=== PATIENT | female | born 1960 | race Caucasian/White ===

== ENCOUNTER → 2016-11-22 | Outpatient (CLI) | payer OTHER ==
--- NOTE | 2016-11-22 20:10 | Diagnostic Imaging Report ---
EXAMINATION: Left breast ultrasound. INDICATION: Left breast mass. FINDINGS: The palpable lump is located at 10:00 zone, 2 cm from the nipple, and is essentially a simple cyst measuring 4.5 x 2.0 x 3.0 cm. No solid mass is seen in the surrounding area within the upper outer quadrant. IMPRESSION: The palpable lump is a simple cyst. No solid mass. Annual screening mammogram is recommended. ACR BI-RADS Category 2: Benign findings. Result letter will be mailed to the patient. Note: At least 10% of breast cancer is not imaged by mammography. Dictated by: Dictated on workstation # [id number]
--- NOTE | 2016-11-22 20:13 | Diagnostic Imaging Report ---
EXAMINATION: Left breast digital diagnostic mammogram with CAD. The current study was also evaluated with a Computer Aided Detection (CAD) system. INDICATION: Lump. FINDINGS: There is heterogeneously dense parenchyma in the left breast. Compared to prior exams no adverse development is seen. The area marked for a lump demonstrates no definitive underlying lesion. However, the area is dense and could obscure underlying abnormality. IMPRESSION: No underlying abnormality is confirmed at the area of the lump. Dense background tissue is seen. Ultrasound correlation pending. ACR BI-RADS Category 0: Incomplete. (Needs additional imaging evaluation). Result letter will be mailed to the patient. Note: At least 10% of breast cancer is not imaged by mammography. Dictated by: Dictated on workstation # [id number]
== END ==
LOC: RAD 07:40
PROVIDERS: ATTEND Nurse Practitioner Family
DX: N60.02 Solitary cyst of left breast (principal)
CPT/HCPCS: 76642

== ENCOUNTER → 2018-01-29 | Outpatient (CLI) | payer OTHER ==
--- NOTE | 2018-01-29 11:56 | Diagnostic Imaging Report ---
INDICATION: Routine screening. COMPARISON: Comparison is made with prior mammograms from 03/28/2016 and 02/21/2015. TECHNIQUE: 2D and 3D bilateral screening mammography was performed with computer-aided detection (CAD) system. FINDINGS: Both breasts remain heterogeneously dense, limiting the sensitivity of mammography. The parenchymal pattern is stable. Previously noted large cyst in the central left breast has decreased in size since study from 2017. No new mass or malignant appearing microcalcifications are seen. There are benign calcifications present. The axillae are unremarkable. IMPRESSION: No mammographic features suspicious for malignancy are identified. ACR BI-RADS Category 2: Benign findings. Result letter will be mailed to the patient. Note: At least 10% of breast cancer is not imaged by mammography. Dictated by: Dictated on workstation # [id number]
== END ==
LOC: RAD 10:03
PROVIDERS: ATTEND Family Medicine
DX: Z12.31 Encounter for screening mammogram for malignant neoplasm of breast (principal); E04.1 Nontoxic single thyroid nodule
CPT/HCPCS: 77067

== ENCOUNTER → 2018-05-21 | Outpatient (CLI) | payer OTHER ==
--- NOTE | 2018-05-21 09:43 | Diagnostic Imaging Report ---
CLINICAL INDICATION: Patient with thyroid cyst. Followup exam. COMPARISONS: Thyroid ultrasound dated 05/08/2016. FINDINGS: THYROID NODULES: There is a stable 4 mm x 2 mm x 3 mm heterogeneous iso-/hypoechoic nodule involving the inferior pole of the right thyroid gland. There is a stable 6 mm x 3 mm x 5 mm hypoechoic nodule involving the medial midportion of left thyroid gland. THYROID GLAND: Besides the thyroid nodules, the thyroid gland has normal size, shape and echogenicity. The right lobe measures 5.0 cm x 2.0 cm x 1.4 cm and the left lobe measures 5.0 cm x 1.8 cm x 1.1 cm in their three dimensions. ISTHMUS: The isthmus is unremarkable and measures 4 mm in thickness. IMPRESSION: Stable bilateral thyroid gland nodules measuring 4 mm on the right and 5 mm on the left. Otherwise, remainder of the thyroid gland is unremarkable. Dictated by: Dictated on workstation # [id number]
== END ==
LOC: RAD 08:48
PROVIDERS: ATTEND Family Medicine
DX: E04.2 Nontoxic multinodular goiter (principal)
CPT/HCPCS: 76536

== ENCOUNTER → 2019-07-23 | Outpatient (CLI) | payer OTHER ==
--- NOTE | 2019-07-23 10:25 | Diagnostic Imaging Report ---
INDICATION: Routine screening. Comparison is made with prior mammogram 01/29/2018 and 03/28/2016. 2-D and 3-D bilateral screening mammography was performed with CAD. Both breasts remain heterogeneously dense, limiting the sensitivity of mammography. Benign calcifications are present. Previously noted circumscribed density in the left breast has decreased in size. No new mass or malignant-appearing microcalcifications are seen. Axillae are unremarkable. IMPRESSION: BI-RADS Category 2 No mammographic features suspicious for malignancy are identified. ACR BI-RADS Category 2: Benign findings. Result letter will be mailed to the patient. Note: At least 10% of breast cancer is not imaged by mammography. Dictated by: Dictated on workstation # [id number]
== END ==
LOC: RAD 07:25
PROVIDERS: ATTEND Family Medicine
DX: Z12.31 Encounter for screening mammogram for malignant neoplasm of breast (principal)
CPT/HCPCS: 77067

== ENCOUNTER → 2020-08-10 | Outpatient (CLI) | payer OTHER ==
--- NOTE | 2020-08-10 08:35 | Diagnostic Imaging Report ---
INDICATION: Routine screening. Comparison is made with prior mammogram 07/23/2019 and 01/29/2018. 2-D and 3-D bilateral screening mammography was performed with CAD. Both breast are heterogeneously dense, limiting the sensitivity of mammography. The parenchymal pattern is stable. No mass or malignant appearing microcalcifications are seen. Axillae are unremarkable. IMPRESSION: BI-RADS Category 1 No mammographic features suspicious for malignancy are identified. ACR BI-RADS Category 1: Negative. Result letter will be mailed to the patient. Note: At least 10% of breast cancer is not imaged by mammography. Dictated by: Dictated on workstation # [id number]
--- NOTE | 2020-08-10 09:57 | Diagnostic Imaging Report ---
PROCEDURE: US Thyroid. TECHNIQUE: Multiple real-time grayscale images were obtained of the thyroid in various projections. INDICATION: Thyroid nodules. COMPARISON: 05/21/2018, 05/08/2016, and 11/17/2013 FINDINGS: The right lobe of thyroid gland measures 5.0 x 1.7 x 1.2 cm. Tiny 0.3 cm cystic nodule is identified within the inferior pole of the right thyroid lobe, not significantly changed since the prior examination. No new right thyroid nodules. The left lobe of thyroid gland measures 3.6 x 1.0 x 1.5 cm. An ovoid 0.6 x 0.5 x 0.5 cm hypoechoic spongiform nodule within the anterior aspect of the left mid thyroid lobe is again identified, not significantly changed since the prior examinations. No new left thyroid nodule. The isthmus is unremarkable. IMPRESSION: Bilateral subcentimeter thyroid nodules not significantly changed for multiple years. No new thyroid nodule. Dictated by: Dictated on workstation # [id number]
== END ==
LOC: RAD 08:00
PROVIDERS: ATTEND Family Medicine
DX: Z12.31 Encounter for screening mammogram for malignant neoplasm of breast (principal); E04.2 Nontoxic multinodular goiter
CPT/HCPCS: 76536; 77063; 77067

== ENCOUNTER 2021-04-18 05:51 | Outpatient (CLI) | payer OTHER ==
[~2021-04-18] VITALS: Ht 157.5 cm; Wt 70.3 kg
== END 2021-04-23 11:58 | disposition home or self-care (01) ==
LOC: PREOP 05:51
PROVIDERS: ATTEND Internal Medicine
DX: Z01.818 Encounter for other preprocedural examination (principal)

== ENCOUNTER 2021-04-27 06:53 | Day surgery (SDC) | payer OTHER ==
--- NOTE | 2021-04-17 15:29 | HISTORY AND PHYSICAL ---
DATE OF SERVICE: COLONOSCOPY HISTORY AND PHYSICAL HISTORY OF PRESENT ILLNESS: The patient is a 60-year-old white female referred by Dr. Bernstein for screening colonoscopy. She had one other colonoscopy a little over 10 years ago. She is deemed to be of average risk as she is not aware of any family history for colon cancer or any other types of cancer. She does report reflux is well controlled on omeprazole with no dysphagia. She denies abdominal pain, change in bowel habits, change in weight, melena or bright red blood per rectum. She does have intermittent lancinating or rectal pain that lasts for less than a minute typically just several times per year that goes back a number of years and has not been getting worse. PAST MEDICAL HISTORY: Significant for benign thyroid nodule, gastroesophageal reflux disease as noted above, hypertension, hyperlipidemia with no known history for vascular disease. MEDICATIONS ON ADMISSION: Include bisoprolol-HCTZ 2.5/6.25 mg daily, atorvastatin 20 mg daily, omeprazole 20 mg daily, calcium with D 500 mg daily. Vitamin D 2000 units daily. FAMILY HISTORY: Father living at the age of 85 with dementia, presumably Alzheimer's. Mother of motor vehicle accident at the age of 50. No reported family history for cancer. PAST SURGICAL HISTORY: Cholecystectomy in 2002 and a past STEFFI and BSO for benign reasons as I recall possibly at the same time as her cholecystectomy. 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 She has no past smoking history and rare social alcohol intake. REVIEW OF SYSTEMS: CONSTITUTIONAL: No night sweats, chills, fever, change in weight. PULMONARY: No cough, chest pain or shortness of breath. GASTROINTESTINAL: As noted in the HPI. CARDIOVASCULAR: No orthopnea, PND or pedal edema. PHYSICAL EXAMINATION: GENERAL: Reveals a well-appearing white female in no acute distress. VITAL SIGNS: Weight 155 pounds, blood pressure 130/90. HEENT: Unremarkable. Sclerae nonicteric. CHEST: Clear to auscultation. CARDIOVASCULAR: Reveals a regular rate and rhythm without murmur, S3 or S4. ABDOMEN: Soft, supple without mass, organomegaly or tenderness. EXTREMITIES: Reveal no cyanosis, clubbing or edema. ASSESSMENT AND PLAN: The patient is set up for screening colonoscopy. Prep instructions with the Suprep kit were given and questions answered. I thank you for the referral of this pleasant lady. Job ID: [id number] DocumentID: [id number] Dictated Date: 04/05/2021 17:48:26 Chief Design Branch Date: 04/05/2021 18:11:23 Dictated By: BETTYE CHEUNG MD MTDD
[~2021-04-27] VITALS: Ht 157.5 cm; Wt 70.3 kg
[2021-04-27] MEDS ORDERED: LACTATED RINGERS 1,000 ML IV ONE (07:18)
[2021-04-27] MEDS ORDERED: LACTATED RINGERS 1,000 ML IV STA (07:36)
[2021-04-27] MEDS ORDERED: PROPOFOL INJECTION 50 ML IV ONE (07:44)
[2021-04-27] MEDS ORDERED: LIDOCAINE JELLY 2% 6 ML SYRINGE MM PRN (07:45)
[2021-04-27 07:50] VITALS: BP 147/81
--- NOTE | 2021-04-27 07:51 | Pre-Op Note & Conscious Sedat ---
Pre-Operative Progress Note H&P Reviewed The H&P was reviewed, patient examined and no changes noted. Date H&P Reviewed: Apr 27, 2021 Time H&P Reviewed: 07:45 Conscious Sedation Pre-Proced ASA Score 2 For ASA 3 and 4: Consider anesthesia and medical clearance. Also, for patients with a history of failed moderate sedation consider anesthesia. Airway Lungs Heart ASA score ASA 1: a normal healthy patient ASA 2: a patient with a mild systemic disease (mid diabetes, controlled hypertension, obesity ASA 3: a patient with a severe systemic disease that limits activity (angina, COPD, prior Myocardial infarction) ASA 4: a patient with an incapacitating disease that is a constant threat to life (CHF, renal failure) ASA 5: a moribund patient not expected to survive 24 hrs. (ruptured aneurysm) ASA 6: a declared brain- patient whose organs are being harvested. For emergent operations, add the letter E after the classification Mallampati Classification Grade 2 Sedation Plan Analgesia, Amnesia, Plan communicated to team members, Discussed options with patient/fam, Discussed risks with patient/fam The patient is an appropriate candidate to undergo the planned procedure, sedation, and anesthesia. The patient immediately re-assessed prior to indication. BETTYE CHEUNG MD Apr 27, 2021 07:51
[2021-04-27] MEDS ORDERED: MIDAZOLAM 2 MG/2 ML (VERSED) VIAL ONE (08:03)
[2021-04-27 08:35] VITALS: BP 110/58
[2021-04-27 08:40] VITALS: BP 113/61
[2021-04-27 08:50] VITALS: BP 103/68
[2021-04-27 09:12] VITALS: BP 124/67
--- NOTE | 2021-04-27 12:50 | OPERATIVE REPORT ---
DATE OF SERVICE: COLONOSCOPY SUMMARY INDICATION FOR THE PROCEDURE: Screening colonoscopy. DESCRIPTION OF PROCEDURE: The patient was placed in the left lateral decubitus position. Prior to undergoing colonoscopy, a digital rectal evaluation was performed. Anal sphincter tone was normal and the perianal reflex was intact. No abnormalities were noted on digital inspection of the anal canal or distal rectal vault. The colonoscope was then inserted into the rectum and under direct visualization advanced to the cecum. The cecum was identified by identification of the ileocecal valve and cecal strap. Photographic documentation was obtained. A careful inspection was made as the colonoscope was withdrawn. The quality of the prep was good. FINDINGS: There was no evidence for internal or external hemorrhoids. Present in the proximal rectum was a 3 mm sessile hyperplastic-appearing polyp. It was biopsied and ablated. It was not submitted for histopathology due to a small size and characteristic features of hyperplastic polyps on visual inspection. The remainder of the rectum was unremarkable. Mild diverticular disease confined to the sigmoid colon was present without evidence for diverticulitis. No other sigmoid colonic abnormalities were appreciated. The descending colon, splenic flexure, transverse colon, hepatic flexure, ascending colon, and cecum were unremarkable. ASSESSMENT: One diminutive hyperplastic-appearing polyp was removed from the proximal rectum with no evidence for neoplasia on today's evaluation. The patient did have mild diverticular disease confined to the sigmoid colon without evidence for diverticulitis. As the patient is not aware of any family history for colon cancer, we would advocate consideration for repeat screening colonoscopy in 10 years. I thank you for the referral of this pleasant lady. Job ID: [id number] DocumentID: [id number] Dictated Date: 04/27/2021 08:33:53 Transformation Specialist Date: 04/27/2021 12:49:59 Dictated By: BETTYE CHEUNG MD
--- NOTE | 2021-04-27 12:52 | Anesthesia-General Post-Op ---
MAC Patient Condition Mental Status/LOC: Same as Preop Cardiovascular: Satisfactory Nausea/Vomiting: Absent Respiratory: Satisfactory Pain: Controlled Complications: Absent Post Op Complications Complications None Follow Up Care/Instructions Patient Instructions None needed. Anesthesiology Discharge Order Discharge Order Patient is doing well, no complaints, stable vital signs, no apparent adverse anesthesia problems. No complications reported per nursing. CORBY GALEANO CRNA Apr 27, 2021 12:52
== END 2021-04-27 09:21 | disposition home or self-care (01) ==
LOC: ENDO 06:53
PROVIDERS: ATTEND Internal Medicine
DX: Z12.11 Encounter for screening for malignant neoplasm of colon (principal); K62.1 Rectal polyp; K57.30 Diverticulosis of large intestine without perforation or abscess without bleeding; K21.9 Gastro-esophageal reflux disease without esophagitis; I10 Essential (primary) hypertension; E78.5 Hyperlipidemia, unspecified; Z79.899 Other long term (current) drug therapy

== ENCOUNTER → 2021-10-02 | Outpatient (CLI) | payer OTHER ==
--- NOTE | 2021-10-02 09:48 | Diagnostic Imaging Report ---
INDICATION: Postmenopausal screening COMPARISON: Baseline FINDINGS: AP Spine L1-L4: [BMD (g/cm2): 1.212] [T-Score: 0.1] [Z-Score: 1.2] [BMD Previous: na] [BMD % Change: na] LT Hip Neck: [BMD (g/cm2): 1.040] [T-Score: 0.0] [Z-Score: 1.2] LT Hip Total: [BMD (g/cm2):1.068] [T-Score:0.5] [Z-Score: 1.4] [BMD Previous: na] [BMD % Change: na] RT Hip Neck: [BMD (g/cm2):0.940] [T-Score:-0.7] [Z-Score:0.5] RT Hip Total: [BMD (g/cm2):1.046] [T-score:0.3] [Z-Score:1.2] [BMD Previous:na] [BMD % Change:na] *Indicates significant change from prior examination based on 95% confidence level. World Health Organization criteria for BMD interpretation classify patients as Normal (T-score at or above -1.0), Osteopenic (T-score between -1.0 and -2.5) or Osteoporotic (T-score at or below -2.5). LIMITATIONS AND MODIFICATION: None. FRACTURE RISK (FRAX SCORE): The ten year probability of (%): Major Osteoporotic Fracture: [na] Hip Fracture: [na] IMPRESSION: 1. Normal bone mineral density. 2. Baseline examination. 3. See below National Osteoporosis Foundation guidelines on when to potentially initiate pharmacologic therapy. Based on the National Osteoporosis Foundation Guidelines, pharmacologic treatment should be initiated in any of the following, unless clinical conditions suggest otherwise: * Any patient with prior fragility fracture of the hip or vertebrae. A spine fracture indicates 5X risk for subsequent spine fracture and 2X risk for subsequent hip fracture. * Osteoporosis (T-score <-2.5). * Postmenopausal women and men age 50 and older with low bone mass/osteopenia (T-score between -1.0 and -2.5) by DXA and 10-year major osteoporotic fracture greater than 20% or a 10-year probability of hip fracture greater than 3%. These fracture risks are supplied above in the FRAX score, if applicable. * Clinician judgement and/or patient preferences may indicate treatment for people with 10-year fracture probabilities above or below these levels. Dictated by: Dictated on workstation # [id number]
--- NOTE | 2021-10-02 14:08 | Diagnostic Imaging Report ---
3-D mammogram INDICATION: Bilateral screening with cad. CAD is utilized. The current study was also evaluated with a Computer Aided Detection (CAD) system. This study was compared to the prior exams as far back as 01/29/2018. At this time there are no current complaints. The current study was also evaluated with a Computer Aided Detection (CAD) system. FINDINGS: The fibroglandular tissue in both breasts is dense. This does limit the sensitivity of this exam. Overall, there does not appear to have been any significant change when compared to the prior study. No primary or secondary sign of malignancy is noted. IMPRESSION: There is no radiographic evidence for malignancy. ACR category 1 ACR BI-RADS Category 1: Negative. Result letter will be mailed to the patient. Note: At least 10% of breast cancer is not imaged by mammography. Dictated by: Dictated on workstation # [id number]
== END ==
LOC: RAD 07:38
PROVIDERS: ATTEND Nurse Practitioner Family
DX: Z12.31 Encounter for screening mammogram for malignant neoplasm of breast (principal); Z13.820 Encounter for screening for osteoporosis; Z78.0 Asymptomatic menopausal state
CPT/HCPCS: 77063; 77067; 77080

== ENCOUNTER → 2022-10-09 | Outpatient (CLI) | payer OTHER ==
--- NOTE | 2022-10-09 11:09 | Diagnostic Imaging Report ---
INDICATION: Screening. EXAMINATION: 3D bilateral screening mammograms. COMPARISON: 10/02/2021 and 08/10/2020. FINDINGS: There is high breast parenchymal density bilaterally. There has been development of a circumscribed nodular focus in the lower inner quadrant of the right breast measuring approximately 1.5 cm in size. No spiculated mass or clustered microcalcifications are seen. IMPRESSION: Category 0, additional imaging is required. Focused ultrasonography should be performed in the lower inner quadrant of the right breast to determine the cystic versus solid nature of an enlarging nodule. ACR BI-RADS Category 0: Incomplete. (Needs additional imaging evaluation). Result letter will be mailed to the patient. Note: At least 10% of breast cancer is not imaged by mammography. Dictated by: Dictated on workstation # [id number]
== END ==
LOC: RAD 07:31
PROVIDERS: ATTEND Family Medicine
DX: Z12.31 Encounter for screening mammogram for malignant neoplasm of breast (principal); N60.01 Solitary cyst of right breast
CPT/HCPCS: 77063; 77067

== ENCOUNTER → 2022-10-23 | Outpatient (CLI) | payer OTHER ==
--- NOTE | 2022-10-23 19:42 | Diagnostic Imaging Report ---
INDICATION: Abnormal mammogram. COMPARISON: Correlation is made with screening mammogram from 10/09/2022. EXAMINATION: Sonographic interrogation of the inner right breast was performed. FINDINGS: There is a lobulated, circumscribed hypoechoic solid nodule in the 3:00 location of right breast, 1 cm from the nipple. This measures 1.8 x 0.9 x 2.0 cm. This does show good posterior acoustic enhancement. This does correlate to the density noted mammographically and has the appearance of a fibroadenoma. No other abnormality is seen. IMPRESSION: Macrolobulated, solid nodule at the 3:00 location of right breast, corresponding to the mammographic density. Imaging features are most suggestive of a benign fibroadenoma. Even so, tissue sampling would be recommended. This would be amenable to ultrasound-guided core biopsy. ACR BI-RADS Category 4: Suspicious abnormality. Result letter will be mailed to the patient. Note: At least 10% of breast cancer is not imaged by mammography. Dictated by: Dictated on workstation # [id number]
== END ==
LOC: RAD 09:04
PROVIDERS: ATTEND Family Medicine
DX: N63.10 Unspecified lump in the right breast, unspecified quadrant (principal)

== ENCOUNTER → 2022-10-31 | Outpatient (CLI) | payer OTHER ==
[~2022-10-31] VITALS: Ht 157.5 cm; Wt 70.3 kg
[~2022-10-31] MED LIST: LIDOCAINE 1% INJ 10 ML VIAL INJ ONE; LIDOCAINE 1% INJ 10 ML VIAL ONE
--- NOTE | 2022-10-31 10:32 | Diagnostic Imaging Report ---
INDICATION: Right breast nodule. PROCEDURE: The patient presents for ultrasound-guided biopsy. The patient was brought to the sonographic suite and placed on the table in the supine position. Ultrasound imaging of the right breast was performed to evaluate appropriate entry site. The right breast was prepped and draped in the usual sterile fashion. A small amount of 1% lidocaine was utilized for local anesthesia. Four passes were made into the hypoechoic mass at the 3:00 location of the right breast utilizing a 14-gauge Achieve needle. A marker clip was then deployed. Hemostasis was obtained using manual compression. The patient tolerated the procedure well and was sent for post procedure mammogram in satisfactory condition. IMPRESSION: Successful ultrasound-guided core biopsy of the nodule at the 3:00 location of the right breast. Pathology results are currently pending. Dictated by: Dictated on workstation # [id number]
--- NOTE | 2022-10-31 12:05 | Diagnostic Imaging Report ---
INDICATION: Right breast nodule, status post ultrasound-guided biopsy. Unilateral right 2-D CC and ML mammography was performed after patient underwent ultrasound-guided biopsy. A marker clip is located in the medial right breast, status post biopsy. IMPRESSION: Marker clip placement, as described. Dictated by: Dictated on workstation # [id number]
== END ==
LOC: RAD 08:15
PROVIDERS: ATTEND Family Medicine
DX: N63.15 Unspecified lump in the right breast, overlapping quadrants (principal)
CPT/HCPCS: 19083; 77065; A4648; G0279